=== PATIENT | female | born 1945 | race Caucasian/White ===

== ENCOUNTER 2018-07-27 07:17 | Day surgery (SDC) | payer MEDICARE ==
[~2018-07-27 07:17] MED LIST: Acetaminophen TAB* 325 MG PO PRN
[2018-07-27] MEDS ORDERED: Midazolam* 1 MG/ML 2 ML VIAL (2 MG) ONE (08:56)
[2018-07-27] MEDS ORDERED: fentaNYL* 50 MCG/ML 2 ML VIAL (100 MCG VIAL) ONE (08:56)
[2018-07-27 10:00] VITALS: BP 107/51
[2018-07-27] MEDS ORDERED: Lidocaine 1%* 5 ML VIAL ONE (11:39)
[2018-07-27] MEDS ORDERED: Tropicamide 1% OPTH.SOL* BTL ONE (11:39)
[2018-07-27] MEDS ORDERED: Phenylephrine OPHTH SOL 2.5%* 2 ML ONE (11:39)
[2018-07-27] MEDS ORDERED: Tetracaine 0.5% OPTH.SOL 4 ML* 1 DROP BTL ONE (11:39)
[2018-07-27] MEDS ORDERED: Neomycin/Polymy/Dex OPHTH.OIN* 3.5 GM ONE (11:39)
[2018-07-27] MEDS ORDERED: Cyclopentolate 1% OPTH.SOL* 2 ML BTL ONE (11:39)
[2018-07-27] MEDS ORDERED: Ketorolac 0.5% OPHTH (NF) 0.5 % 5 ML BTL ONE (11:39)
--- NOTE | 2018-07-27 16:14 | OP ---
DATE OF OPERATION: 07/27/18 - [facility] DATE OF : 47 SURGEON: Jose Espinal MD SOFTWARE ARCHITECT: None. ANESTHESIA: Topical with intravenous sedation. PRE-OP DIAGNOSIS: Cataract, right eye, with astigmatism. POST-OP DIAGNOSIS: Cataract, right eye, with astigmatism. OPERATIVE PROCEDURE: Phacoemulsification and cataract extraction with posterior Toric multifocal lens implant, right eye. COMPLICATIONS: None. BLOOD LOSS: None. DESCRIPTION OF PROCEDURE: The patient was seen preoperatively in the holding area where a vanessa was made at the 6 o'clock position of the limbus of the right eye while the patient was sitting upright. The patient was subsequently brought to the operating room and given a small amount of intravenous sedation and a drop of tetracaine into her right eye. The patient was prepped and draped in the usual sterile fashion for ophthalmic surgery and attention was directed to the right eye where a speculum was placed. A paracentesis was created at the 11 o'clock position and 0.1 cc of 1% preservative-free lidocaine was injected into the anterior chamber followed by DisCoVisc. The eye was digitally stabilized while a 2.75 mm keratome was used to create a triplanar clear corneal incision at the 9 o'clock position. A continuous curvilinear capsulorrhexis was created with a cystotome and Utrata forceps. BSS on a cannula was used to hydrodissect the lens from the capsule. Phacoemulsification was performed in a [id number]-[id number] technique to create 4 fragments, which were removed. Residual cortical material was removed with irrigation and aspiration. The capsule was polished. ProVisc was placed into the capsular bag in the anterior chamber. The eye pressure was measured with intraoperative tonometer. The surface of the eye was lubricated. The ORA instrument was employed to help guide lens choice. A ReSTOR multifocal SV25T4 21.5 diopter lens was inserted into the capsular bag and rotated to the 12 degree axis. The lens was stabilized with a Sinskey hook while irrigation and aspiration was performed to remove viscoelastic from the eye. The Sinskey hook was removed. BSS on a cannula was used to hydrate the corneal stroma and seal the wound. At the end of the case, the pupil was round, the lens was centered stable on axial line. The eye pressure appeared normal and the wound was watertight. The speculum was removed and topical Maxitrol ointment was placed on the surface of the eye. The eye was closed, patched and shielded, and the patient was sent to the recovery room in stable condition with postoperative instructions and followup appointment given. [id number]/[facility] #: [id number] MTDD
== END 2018-07-27 10:07 | disposition home or self-care (01) ==
LOC: OREAST 07:17
PROVIDERS: ATTEND Ophthalmology
DX: H25.11 Age-related nuclear cataract, right eye (principal); H52.201 Unspecified astigmatism, right eye; K74.3 Primary biliary cirrhosis
CPT/HCPCS: A9270-GY; J2250; J3010; V2788

== ENCOUNTER 2018-08-03 06:45 | Day surgery (SDC) | payer MEDICARE ==
[~2018-08-03 06:45] MED LIST changes: +Buffered Lidocaine 1% SYRIN* 1 ML/SYRINGE INTRADERM ONE
[2018-08-03] MEDS ORDERED: Midazolam* 1 MG/ML 2 ML VIAL (2 MG) ONE (07:50)
[2018-08-03] MEDS ORDERED: fentaNYL* 50 MCG/ML 2 ML VIAL (100 MCG VIAL) ONE (07:50)
[2018-08-03 09:13] VITALS: BP 105/46
--- NOTE | 2018-08-03 10:08 | OP ---
OPERATIVE REPORT: DATE OF OPERATION: 08/03/18 - [facility] DATE OF : 47 SURGEON: Dr. Jose Espinal. SURVEY RESEARCH ASSOCIATE: None. ANESTHESIOLOGIST: Meghana Mccoy DO ANESTHESIA: Topical with intravenous sedation. PRE-OP DIAGNOSIS: Cataract with mild astigmatism, left eye. POST-OP DIAGNOSIS: Cataract with mild astigmatism, left eye. OPERATIVE PROCEDURE: Phacoemulsification and cataract extraction with posterior chamber intraocular lens implant, left eye. COMPLICATIONS: None. ESTIMATED BLOOD LOSS: None. OPERATIVE FINDINGS: The patient was seen preoperatively in the holding area where a vanessa was made at the 6 o'clock position of the limbus with a marking pen while she was in an upright position. The patient was subsequently brought to the operating room and given intravenous sedation as well as a drop of tetracaine to her left eye. The patient was prepped and draped in the usual sterile fashion for ophthalmic surgery and attention was directed to the left eye where a speculum was placed. A paracentesis was created at the 5 o'clock position and 0.1 cc of 1% preservative-free lidocaine was injected into the anterior chamber followed by DisCoVisc. The eye was digitally stabilized while a 2.75 mm keratome was used to create a triplanar clear corneal incision at the 3 o'clock position. A continuous curvilinear capsulorrhexis was created with a cystotome and Utrata forceps. BSS on a cannula was used to hydrodissect the lens from the capsule. Phacoemulsification was performed in a divide-and- conquer technique to create 4 fragments which were removed. Residual cortical material was removed with irrigation and aspiration. ProVisc was used to inflate the capsular bag and the eye pressure was measured with an intraoperative tonometer. The surface of the eye was lubricated. The ORA instrument was employed to determine whether a toric lens was needed. The ORA instrument pointed toward a spherical lens. Thus, an SV25T0 20.5 diopter lens was folded and inserted into the capsular bag. Viscoelastic was removed with irrigation and aspiration. BSS on a cannula was used to hydrate the corneal stroma and seal the wound. At the end of the case, the pupil was round. The lens was centered stable and secured. The eye pressure appeared normal and the wound was watertight. The speculum was removed and topical Maxitrol ointment was placed on the surface of the eye. The eye was closed, patched and shielded and the patient was sent to the recovery room in stable condition with postop instructions and followup appointment given. [id number]/[facility] #: [id number] DAX
[2018-08-03] MEDS ORDERED: Tropicamide 1% OPTH.SOL* BTL ONE (14:51)
[2018-08-03] MEDS ORDERED: Lidocaine 1%* 5 ML VIAL ONE (14:51)
[2018-08-03] MEDS ORDERED: Ketorolac 0.5% OPHTH (NF) 0.5 % 5 ML BTL ONE (14:51)
[2018-08-03] MEDS ORDERED: Cyclopentolate 1% OPTH.SOL* 2 ML BTL ONE (14:51)
[2018-08-03] MEDS ORDERED: Phenylephrine OPHTH SOL 2.5%* 2 ML ONE (14:51)
[2018-08-03] MEDS ORDERED: Neomycin/Polymy/Dex OPHTH.OIN* 3.5 GM ONE (14:51)
[2018-08-03] MEDS ORDERED: Tetracaine 0.5% OPTH.SOL 4 ML* 1 DROP BTL ONE (14:51)
== END 2018-08-03 09:10 | disposition home or self-care (01) ==
LOC: OREAST 06:45
PROVIDERS: ATTEND Ophthalmology
DX: H25.12 Age-related nuclear cataract, left eye (principal); K74.3 Primary biliary cirrhosis; E78.5 Hyperlipidemia, unspecified; K21.9 Gastro-esophageal reflux disease without esophagitis; K44.9 Diaphragmatic hernia without obstruction or gangrene
CPT/HCPCS: A9270-GY; J2250; J3010; V2788